=== PATIENT | female | born 1960 | race Caucasian/White ===

== ENCOUNTER 2020-12-15 06:43 | Outpatient (REF) | payer BC, SELFPAY ==
[2020-12-15 12:00] LABS: Hematocrit 44.1 % (37-47); Hemoglobin 14.2 g/dl (12.0-16.0); Mean Corpuscular HGB Conc 32.2 g/dl (31.0-35.0); Mean Corpuscular Hemoglobin 30.5 pg (27.0-33.0); Mean Corpuscular Volume 94.6 fL (80-98); Mean Platelet Volume 10.2 fL (9.4-12.3); Platelet Count 429 X10*3/uL (160-400); Red Blood Count 4.66 X10*6/uL (4.20-5.50); Red Cell Distribution Width 14.2 % (11.0-16.0); White Blood Count 8.2 X10*3/uL (4.8-10.8)
[2020-12-15 13:17] LABS: Alanine Aminotransferase 19 U/L (0-31); Albumin Level 4.1 g/dL (3.5-5.0); Alkaline Phosphatase 121 U/L (39-117); Anion Gap 11 (12-20); Aspartate Amino Transferase 18 U/L (5-31); Bilirubin Total 0.5 mg/dL (0.0-1.0); Blood Urea Nitrogen 16 mg/dL (9-16); Calcium 8.9 mg/dL (8.4-10.2); Carbon Dioxide 31 mmol/L (22-29); Chloride 103 mmol/L (96-108); Cholesterol 179 mg/dL; Estimated Glomerular Filt Rate > 60; Glucose Fasting 98 mg/dL (60-99); HDL Cholesterol 49 mg/dL; LDL Cholesterol Calculated 108 mg/dl; Potassium 4.2 mmol/L (3.3-5.1); Sodium 141 mmol/L (135-145); Total Protein 7.1 g/dL (6.5-8.0); Triglycerides 110 mg/dL; Vitamin D 25-OH Total 53.8 ng/mL (>30)
== END 2020-12-15 06:44 | disposition home or self-care (01) ==
LOC: HO.HMGCLDS 06:43
PROVIDERS: PCP Nurse Practitioner Family; Visit Provider Nurse Practitioner Family
DX: E78.2 Mixed hyperlipidemia (principal); M85.80 Other specified disorders of bone density and structure, unspecified site
CPT/HCPCS: 36415; 80053; 80061; 82306; 85027

== ENCOUNTER 2021-03-21 08:25 | Outpatient (REF) | payer BC, SELFPAY ==
[2021-03-23 20:22] LABS: HPV mRNA E6/E7 rflx Not Detected (Not Detected)
== END 2021-03-21 08:26 | disposition home or self-care (01) ==
LOC: HO.LAB 08:25
PROVIDERS: PCP Internal Medicine; Referring Provider Internal Medicine; Visit Provider Advanced Practice Midwife
DX: Z01.419 Encounter for gynecological examination (general) (routine) without abnormal findings (principal); Z12.31 Encounter for screening mammogram for malignant neoplasm of breast; Z80.3 Family history of malignant neoplasm of breast
CPT/HCPCS: 87624; 88142

== ENCOUNTER 2021-06-16 07:50 | Outpatient (REF) | payer BC, SELFPAY ==
--- NOTE | ~2021-06-16 | MM_ITS ---
EXAMINATION: MM SCREENING DIGITAL BREAST TOMOSYNTHESIS, BILATERAL CLINICAL INFORMATION: Screening. Asymptomatic. The lifetime risk of breast cancer based on the Tyrer-Cuzick Model is 16.2%. COMPARISON: Mammography: March 23, 2020 and studies dating back to November 20, 2013 TECHNIQUE: Digital breast tomosynthesis is performed in both the craniocaudal and mediolateral oblique views along with computer-aided detection (CAD). Synthesized 2D images are generated from the tomosynthesis. FINDINGS: There are scattered areas of fibroglandular density (ACR BI-RADS breast composition Category b). There is a stable parenchymal pattern within the right breast with no new abnormal dominant mass or suspicious grouping of microcalcifications. About the anterior inferior medial aspect of the left breast there is a circumscribed 5 mm density without calcification or spiculation. Ultrasound evaluation is recommended MM/MM tomosynthesis screening BI IMPRESSION: Left retroareolar density. Follow-up ultrasound evaluation. ASSESSMENT: BI-RADS 0: Incomplete - Need Additional Imaging Evaluation RECOMMENDATION: Left breast ultrasound This patient's information was entered into a reminder system with a target due date for their next mammogram.
== END 2021-06-16 07:51 | disposition home or self-care (01) ==
LOC: HO.MAMMO 07:50
PROVIDERS: PCP Nurse Practitioner Family; Visit Provider Advanced Practice Midwife
DX: Z12.31 Encounter for screening mammogram for malignant neoplasm of breast (principal)
CPT/HCPCS: 77063; 77067

== ENCOUNTER 2021-07-02 13:22 | Outpatient (REF) | payer BC, SELFPAY ==
--- NOTE | ~2021-07-02 | US_ITS ---
EXAMINATION: US DIAGNOSTIC ULTRASOUND BREAST, LEFT CLINICAL INFORMATION: Recall from screening for superficial circumscribed nodule inferior medial left breast near areolar margin, possibly increased in size. Family history breast cancer mother and sister. COMPARISON: Mammography 06/16/2021, 03/23/2020, 11/14/2018. TECHNIQUE: Ultrasound left breast is targeted to the lower inner anterior breast using grayscale imaging and color Doppler without and with harmonics. FINDINGS: The chronic nodule at the inferomedial areolar margin represents a hypoechoic nodule at the deep dermis measuring approximately 4 x 4 x 8 mm. The long axis is parallel with the skin. The interface with the deep dermis suggests subtle claw sign of a lesion of dermal origin. There is visible stalk seen extending towards the skin surface. No internal color flow. There is no posterior acoustic enhancement or posterior acoustic shadowing. No skin thickening or edema tracking in soft tissue planes. No focal duct ectasia. Results are discussed with the patient at time of visit. The circumscribed nodule has features possibly suggesting a lesion of dermal origin, such as sebaceous cyst or epidermal inclusion cyst. There is no internal color flow. Given the family history, follow-up ultrasound will be performed in 6 months to confirm stability. Patient is in agreement. US/US breast LT limited IMPRESSION: Circumscribed avascular nodule at the deep dermis possibly a sebaceous cyst. ASSESSMENT: BI-RADS 3: Probably Benign RECOMMENDATION: Targeted left breast ultrasound in 6 months. This patient's information was entered into a reminder system with a target due date for their next mammogram.
== END 2021-07-02 13:23 | disposition home or self-care (01) ==
LOC: HO.MAMMO 13:22
PROVIDERS: PCP Nurse Practitioner Family; Visit Provider Advanced Practice Midwife
DX: R92.2 Inconclusive mammogram (principal)
CPT/HCPCS: 76642

== ENCOUNTER 2021-10-16 10:25 | Outpatient (REF) | payer BC, SELFPAY ==
[2021-10-19 13:37] LABS: HPV mRNA E6/E7 rflx Not Detected (Not Detected)
== END 2021-10-16 10:26 | disposition home or self-care (01) ==
LOC: HO.LAB 10:25
PROVIDERS: PCP Nurse Practitioner Family; Visit Provider Advanced Practice Midwife
DX: Z12.4 Encounter for screening for malignant neoplasm of cervix (principal); Z11.51 Encounter for screening for human papillomavirus (HPV)
CPT/HCPCS: 87624; 88142

== ENCOUNTER 2022-02-19 14:23 | Outpatient (REF) | payer BC, SELFPAY ==
--- NOTE | ~2022-02-19 | US_ITS ---
EXAMINATION: US DIAGNOSTIC ULTRASOUND BREAST, LEFT CLINICAL INFORMATION: Circumscribed avascular nodule adjacent to the deep dermis periareolar 8:00 left breast for follow-up. Family history breast cancer mother and sister. COMPARISON: Ultrasound left breast 07/02/2021, mammography 06/16/2021, 03/23/2020. TECHNIQUE: Ultrasound of the left breast is targeted to the anterior lower inner quadrant using grayscale imaging and color Doppler without and with harmonics. FINDINGS: The nodule for follow-up 8:00 position 1 cm from nipple near areolar margin is stable. Lesion is circumscribed, residing adjacent to the deep dermis and without color flow. There is no visible stalk to the skin surface. No skin thickening. No edema tracking in soft tissue plane. Results are discussed with the patient at time of visit. Targeted left breast ultrasound will be performed again at time of annual bilateral mammography, due in approximately 6 months. US/US breast LT limited IMPRESSION: Stable avascular hypoechoic nodule 8:00 subareolar left breast. ASSESSMENT: BI-RADS 3: Probably Benign RECOMMENDATION: Targeted left breast ultrasound at time of annual bilateral mammography, due in 6 months. This patient's information was entered into a reminder system with a target due date for their next mammogram.
== END 2022-02-19 14:24 | disposition home or self-care (01) ==
LOC: HO.MAMMO 14:23
PROVIDERS: PCP Nurse Practitioner Family; Visit Provider Nurse Practitioner Family
DX: N63.24 Unspecified lump in the left breast, lower inner quadrant (principal)
CPT/HCPCS: 76642

== ENCOUNTER 2022-03-26 09:38 | Outpatient (REF) | payer BC, SELFPAY ==
[2022-03-29 19:06] LABS: HPV mRNA E6/E7 rflx Not Detected (Not Detected)
== END 2022-03-26 09:39 | disposition home or self-care (01) ==
LOC: HO.LAB 09:38
PROVIDERS: Visit Provider Advanced Practice Midwife
DX: Z12.4 Encounter for screening for malignant neoplasm of cervix (principal); Z11.51 Encounter for screening for human papillomavirus (HPV); Z87.42 Personal history of other diseases of the female genital tract
CPT/HCPCS: 87624; 88142

== ENCOUNTER → 2022-08-01 07:22 | Outpatient (REF) | payer BC, SELFPAY ==
--- NOTE | 2022-08-01 07:25 | CA_ITS ---
Transthoracic Echocardiogram Patient (Last, First, Middle): Tiffany Nelson J Gender: Female Date of : 1960 Age: 61 Procedure Date: 08/01/2022 Procedure Type: Transthoracic Echocardiogram Location: OP Height: 162.56 cm Weight: 67.13 kg BSA: 1.72 m2 Heart Rate: 73 bpm BP: 100 / 60 mmHg Progress Man: TO Referring MD: Renetta Olsen NP Symptoms: ABN EKG, RBBB, WOLF Study Quality: Technically Difficult/Contrast ECG Rhythm: Sinus Conclusions: - The left ventricular systolic function is normal. The calculated ejection fraction is 63% by biplane method. - There is mild calcification of the aortic valve. - No obvious valvular pathology seen on this study. Findings Procedure Information Contrast agent, definity, is being given per protocol without apparent complications. Left Ventricle Normal left ventricular cavity size. There is normal left ventricular wall thickness. The left ventricular systolic function is normal. The calculated ejection fraction is 63% by biplane method. There is no evidence of regional wall motion abnormalities. Diastolic function is normal for age. Right Ventricle Normal right ventricular cavity size and systolic function. Atria Both atria are normal in size. Aortic Valve There is a normal trileaflet aortic valve. There is mild calcification of the aortic valve. There is no aortic valve stenosis. There is no aortic valve regurgitation. Mitral Valve The mitral valve appears normal. There is no mitral valve regurgitation. There is no mitral valve stenosis. Pulmonic Valve The pulmonic valve is likely normal. Tricuspid Valve Normal tricuspid valve structure. There is trace tricuspid valve regurgitation. There is no evidence of pulmonary hypertension. Great Vessels The asc aorta is normal in size. Venous The inferior vena cava is normal in size and collapses greater than 50% with inspiration. Pericardium/Pleural Widened pericardial space, unable to distinguish between adipose tissue and effusion. Prior Study Comparison No prior study available for comparison. Recommendations, Care & Conclusions No obvious valvular pathology seen on this study. Measurements 2D Linear Measurements IVSd: 0.72 0.6-0.9/0.6-1.0 cm LVIDd: 3.83 3.9-5.3/4.2-5.9 cm LVIDd Index: 2.23 2.4-3.2/2.2-3.1 cm/m2 LVIDs: 2.85 2.0-3.6 cm LVPWd: 0.86 0.7-1.1 cm LA Diam: 2.50 2.7-3.8/3.0-4.0 cm LAIDs Index: 1.45 1.5-2.3 cm/m2 LV Mass: 106.24 67-162/88-224 g LV Mass Index: 61.77 43-95/49-115 g/m2 LVOT Diam: 2.00 3.0+(-)1.3 cm 2D Systolic Function EF 4C: 56.00 >55% EF 2C: 69.10 >55% EF BiP: 63.20 >55% Mitral Valve MV Pk E: 0.73 MV PK A: 0.52 MV Decel Time: 205.00 E/A: 1.40 E'Lateral: 11.90 E'Medial: 7.94 E/E' Med: 9.20 E/E' Lat: 6.10 PHT: 60.00 MVA PHT: 3.67 Decel [place]: 3.55 Aortic Valve AoV Pk [place]: 1.18 AoV Mn [place]: 0.92 AoV VTI: 0.27 AoV Pk Grad: 6.00 Aov Mn Grad: 4.00 TAMIKA Cont.VTI: 2.40 LVOT LVOT Pk [place]: 1.05 LVOT Mn [place]: 0.62 LVOT VTI: 0.21 LVOT Pk Grad: 4.00 LVOT Mn Grad: 2.00 LVOT Diam: 2.00 LVOT Area: 3.14 Diastolic Function MV Pk E: 0.73 MV Pk A: 0.52 E/A: 1.40 E'Medial: 7.94 E/E' Med: 9.20 E' Laterial: 11.90 E/E' Lat: 6.10 Right Ventricle TAPSE (mm): 17.50 TVS' [place]: 10.40 Tricuspid Valve TR Pk [place]: 2.47 TR Pk Grad: 24.00 RA Press: 3.00 RVSP: 27.00 Great Vessels Aorta Sinus of Valsalva: 2.73 2.0-3.5 cm Ao Asc: 3.00 2.1-3.4 cm Updated in Other Vendor System with Status of Final Gm Smith MD electronically signed on 08/02/2022 2:28:45 PM with status of Final
== END ==
LOC: HO.CARD 07:22
PROVIDERS: Visit Provider Nurse Practitioner Family
DX: R94.31 Abnormal electrocardiogram [ECG] [EKG] (principal)
CPT/HCPCS: 93306; Q9957

== ENCOUNTER 2022-08-09 07:09 | Outpatient (REF) | payer BC, SELFPAY ==
[2022-08-09 11:28] LABS: MANUAL DIFF FLAG NO
[2022-08-09 11:48] LABS: Basophils Absolute Auto 0.1 X10*3/uL (0.0-0.2); Basophils Percent Auto 1.3 % (0-2); Eosinophils Absolute Auto 0.3 X10*3/uL (0.0-0.4); Eosinophils Percent Auto 3.8 % (0-4); Hematocrit 40.8 % (37.0-47.0); Hemoglobin 13.7 g/dl (12.0-16.0); Imm Gran Abs Auto 0.02 X10*3/uL (0.00-0.03); Imm Gran Pct Auto 0.2 % (0.0-0.4); Lymphocytes Absolute Auto 3.2 X10*3/uL (1.2-4.9); Lymphocytes Percent Auto 37.4 % (20-40); Mean Corpuscular HGB Conc 33.6 g/dl (31.0-35.0); Mean Corpuscular Hemoglobin 30.9 pg (27.0-33.0); Mean Corpuscular Volume 92.1 fL (80.0-98.0); Monocytes Absolute Auto 0.8 X10*3/uL (0.1-1.2); Neutrophils Absolute Auto 4.1 x10*3/uL (2.0-8.3); Neutrophils Percent Auto 48.3 % (45-73); Platelet Count 481 X10*3/uL (160-400); Red Blood Count 4.43 X10*6/uL (4.20-5.50); White Blood Count 8.5 X10*3/uL (4.8-10.8)
[2022-08-09 11:59] LABS: Alanine Aminotransferase 18 U/L (0-31); Alkaline Phosphatase 132 U/L (39-117); Anion Gap 15 (12-20); Aspartate Amino Transferase 16 U/L (5-31); Bilirubin Total 0.5 mg/dL (0.0-1.0); Blood Urea Nitrogen 10 mg/dL (9-16); Carbon Dioxide 24 mmol/L (22-29); Chloride 106 mmol/L (96-108); Cholesterol 153 mg/dL; Estimated Glomerular Filt Rate > 60; Glucose Random 101 mg/dL (60-115); HDL Cholesterol 46 mg/dL; LDL Cholesterol Calculated 88 mg/dl; Potassium 4.3 mmol/L (3.3-5.1); Sodium 141 mmol/L (135-145); Total Protein 7.1 g/dL (6.5-8.0); Triglycerides 98 mg/dL
== END 2022-08-09 07:10 | disposition home or self-care (01) ==
LOC: HO.HMGCLDS 07:09
PROVIDERS: PCP Nurse Practitioner Family; Visit Provider Nurse Practitioner Family
DX: Z00.00 Encounter for general adult medical examination without abnormal findings (principal); R06.00 Dyspnea, unspecified; J44.9 Chronic obstructive pulmonary disease, unspecified; E78.2 Mixed hyperlipidemia; F17.200 Nicotine dependence, unspecified, uncomplicated
CPT/HCPCS: 36415; 80053; 80061; 85025; 94618

== ENCOUNTER 2022-08-29 14:52 | Outpatient (REF) | payer BC, SELFPAY ==
--- NOTE | ~2022-08-29 | MM_ITS ---
EXAMINATION: MM DIAGNOSTIC DIGITAL BREAST TOMOSYNTHESIS, BILATERAL US DIAGNOSTIC ULTRASOUND BREAST, LEFT CLINICAL INFORMATION: Due for yearly. Also follow-up probable benign hypoechoic nodules subareolar left breast possibly sebaceous cyst. Family history breast cancer mother and sister. TC score 14%. COMPARISON: Mammography: 06/16/2021, 03/23/2020, 11/14/2018; ultrasound left breast 02/19/2022, 07/02/2021. TECHNIQUE: Digital breast tomosynthesis is performed in both the craniocaudal and mediolateral oblique views along with computer-aided detection (CAD). Synthesized 2D images are generated from the tomosynthesis. Ultrasound left breast is targeted to the medial periareolar breast using grayscale imaging and color Doppler without and with harmonics. FINDINGS: There are scattered areas of fibroglandular density (ACR BI-RADS breast composition Category b). Parenchymal pattern is similar to prior exams. There is no developing density or significant mass or architectural abnormality. No abnormal calcifications. The axilla and skin contours are unremarkable. Circumscribed nodule 8:00 areolar margin left breast is stable from multiple prior studies. No significant change in size or margins. Ultrasound demonstrates no significant changes. Again, there is nearly anechoic nodule without associated color flow and measuring approximately 4 x 6 mm. The interface with the deep dermis suggests benign claw sign of a lesion of dermal origin as noted previously. Results are discussed with the patient at time of visit. The nodule left breast is chronic and likely sebaceous cyst. MM/MM tomosynthesis diagnostic BI IMPRESSION: -No mammographic evidence of malignancy. No significant changes from prior exams. -Probable intradermal merging with the dermis on targeted left breast ultrasound, under 1 cm. ASSESSMENT: BI-RADS 2: Benign RECOMMENDATION: Routine annual mammography screening. This patient's information was entered into a reminder system with a target due date for their next mammogram.
== END 2022-08-29 14:53 | disposition home or self-care (01) ==
LOC: HO.MAMMO 14:52
PROVIDERS: PCP Nurse Practitioner Family; Visit Provider Nurse Practitioner Family
DX: N63.22 Unspecified lump in the left breast, upper inner quadrant (principal)
CPT/HCPCS: 76642; 77062; 77066

== ENCOUNTER 2022-09-25 08:01 | Outpatient (REF) | payer BC, SELFPAY ==
[2022-09-26 09:28] LABS: HPV mRNA E6/E7 rflx Not Detected (Not Detected)
== END 2022-09-25 08:02 | disposition home or self-care (01) ==
LOC: HO.LNP 08:01
PROVIDERS: PCP Nurse Practitioner Family; Visit Provider Advanced Practice Midwife
DX: Z12.4 Encounter for screening for malignant neoplasm of cervix (principal); Z11.51 Encounter for screening for human papillomavirus (HPV); Z87.42 Personal history of other diseases of the female genital tract
CPT/HCPCS: 87624; 88142

== ENCOUNTER 2022-10-03 15:35 | Outpatient (REF) | payer BC, SELFPAY ==
--- NOTE | 2022-10-03 17:42 | PFT_ITS ---
INDICATIONS: Dyspnea. SPIROMETRY: FEV1 to FVC 66% with an FEV1 of 1.44 L, which is 57% predicted, an FVC of 2.19 L, which is 67% predicted. Post bronchodilators, there was a significant improvement of both the FVC and the FEV1. Of note, the patient also has significant small airway disease. The maximum voluntary ventilation is 62% predicted. LUNG VOLUMES: Total lung capacity 101% predicted with residual volume 161% predicted. DIFFUSION CAPACITY: DLCO 46% predicted. COMPARISONS: None. INTERPRETATION: There is an obstructive ventilatory defect consistent with moderate COPD. The patient does have a significant response to bronchodilators noted and significant small airway disease. There is a moderate decrease in maximum voluntary ventilation secondary to likely deconditioning and also worsening dynamic inspiratory capacity. Lung volumes with significant air trapping due to the COPD and there is also moderate to severe diffusion impairment secondary to likely emphysema and/or the parenchymal lung conditions that should be considered. Clinical correlation warranted. MD JAMAL Domingo/MERVIN / [id number]
== END 2022-10-03 15:36 | disposition home or self-care (01) ==
LOC: HO.RESP 15:35
PROVIDERS: PCP Nurse Practitioner Family; Visit Provider Hospitalist
DX: R06.00 Dyspnea, unspecified (principal)
CPT/HCPCS: 94060; 94727; 94729

== ENCOUNTER → 2022-10-09 11:21 | Outpatient (BNVA) | payer BC, SELFPAY | PROVIDERS: PCP Nurse Practitioner Family; Visit Provider Hospitalist | DX: J44.9 Chronic obstructive pulmonary disease, unspecified (principal); F17.200 Nicotine dependence, unspecified, uncomplicated ==

== ENCOUNTER 2023-04-28 09:22 | Outpatient (AMB) | payer BC, SELFPAY ==
--- NOTE | 2023-04-28 09:39 | MHC.OFFVIS ---
Intake Vital Signs 04/28/23 09:44 Height 5 ft 4 in Weight 139 lb BMI 23.9 BP 119/59 L Blood Pressure Location Lt brachial Position Sitting Pulse 78 Intake Visit Reasons: Colonoscopy screening Intake Note: Patient new consult for 3rd pre Colonoscopy screening. Patient denies any GI issues. Residential Sales Representative Required: No Accompanied by: Self / Same As Patient Allergies acetaminophen [From TYLENOL-CODEINE #3] Allergy (Unknown, Verified 10/09/22 11:31) RASH codeine [From TYLENOL-CODEINE #3] Allergy (Unknown, Verified 10/09/22 11:31) RASH Medication List - Last Reconciled 04/28/23 by Shruthi White PA-C albuterol sulfate 90 mcg/actuation 2 inhalations inhalation Q6H PRN 30 days atorvastatin 40 mg PO DAILY bupropion HCl 150 mg PO QAM calcium carbonate (Calcium 500) 500 mg PO DAILY cholecalciferol (vitamin D3) 50 mcg PO DAILY clindamycin phosphate 1% topical fluocinonide 0.05% 1 appl topical DAILY PRN HPI HPI Comments History of Present Illness Details A 62 y/o female - hx adenoma-she had polyps @ age 50 Bowels are normal- appetite is good- No known family history colon cancer No cardiac issues, COPD follows with pulmonary-she is a smoker pack a day No N/V/ D- abdominal pain, fever or chills- PFSH Medical History (Updated 04/28/23 @ 10:10 by Shruthi White PA-C) COPD (chronic obstructive pulmonary disease) Dermatitis Dyspnea History of abnormal cervical Pap smear History of depression Hyperlipidemia Smoker Vitamin D deficiency Surgical History History of loop electrical excision procedure (LEEP) Family History Daughter Head and neck cancer Mother History of breast cancer Sister History of breast cancer Social History Alcohol intake: never Patient Tobacco Use Status: Current everyday Tobacco user Cigarette Packs Per Day: 1 Use of substances other than those prescribed or required for medical reasons: No Review of Systems Const All systems reviewed & are unremarkable except as noted in HPI and below Card Denies chest pain and Reports dyspnea on exertion Resp Reports dyspnea on exertion GI Reports as per HPI, Denies abdominal pain, Denies change in bowel habits, Denies heartburn, Denies diarrhea, Denies nausea and Denies vomiting Physical Exam Vital Signs: Last Vital Signs Pulse 78 04/28/23 09:44 BP 119/59 L 04/28/23 09:44 BMI result Body Mass Index 23.9 Const General: cooperative, healthy appearing and comfortable Orientation/consciousness: patient oriented x3 Limitations: no limitations Resp Effort & Inspection: normal respiratory effort and able to speak in complete sentences Auscultation: no wheezes and diminished lung sounds Cardio Rate: regular rate Rhythm: regular rhythm Heart sounds: S1 normal heart sound present and S2 normal heart sound present GI Palpation (GI): Soft to palpation and nontender Auscultation: normal bowel sounds Skin General skin exam: no rashes or lesions noted Neuro General: patient oriented x3 Extrem General: Yes full ROM Psych Appearance: grossly normal and well kempt Mental Status: mental status grossly normal Speech and movement: Normal speech and movement present Affect: normal affect Attitude: cooperative Thought process: Normal thought process present Thought content: Normal thought content present Insight: Good insight present (Psych) Judgement: Good judgement present (Psych) Results Reviewed Results Reviewed: Colonoscopy-tubular adenoma at age 50-last colonoscopy 2015-no polyps Assessment & Plan Assessment & Plan (1) History of adenomatous polyp of colon: Comment: Overdue polyp surveillance Code(s): Z86.010 - Personal history of colonic polyps Plan: Polyp surveillance colonoscopy MiraLax Gatorade prep Anesthesia consult sees pulmonary COPD Plan Colonoscopy- MG prep- anesthesia consult- COPD Orders: Orders Colonoscopy - GI Use Only Today Z86.010 - Personal history of colonic polyps Medications: New bisacodyl (Dulcolax (bisacodyl)) Take 4 tablets by mouth at 12:00pm the day before your procedure. 20 mg (4 x 5 mg) PO ONCE 1 day 4 tabs 0RF colonoscopy prep Z12.11 - Encounter for screening for malignant neoplasm of colon polyethylene glycol 3350 (Miralax) Take as directed by mouth the day before your procedure. 238 grams PO ONCE 1 day PRN 238 grams 0RF laxative effect Patient Instructions: Very pleasant 62-year-old female COPD, smoker due for polyp surveillance colonoscopy. Reviewed prep instructions, literature given Encouraged to call questions or concerns Appreciate the opportunity assist in the care the patient Coding Level of Care Code New Pt Level 3 (43512) Diagnoses History of adenomatous polyp of colon Z86.010 Time Spent (min) 30
[2023-04-28 09:44] VITALS: BP 119/59; PULSE 78; BMI 23.9
== END 2023-04-28 10:22 | disposition home or self-care (01) ==
PROVIDERS: PCP Nurse Practitioner Family; Visit Provider Physician Assistant
DX: Z01.818 Encounter for other preprocedural examination (principal); Z12.11 Encounter for screening for malignant neoplasm of colon; Z86.010 Personal history of colon polyps
CPT/HCPCS: S0285

== ENCOUNTER → 2023-04-28 09:22 | Outpatient (BNVA) | payer BC, SELFPAY | PROVIDERS: PCP Nurse Practitioner Family; Visit Provider Physician Assistant ==

== ENCOUNTER 2023-05-09 08:54 | Outpatient (AMB) | payer BC, SELFPAY ==
--- NOTE | 2023-05-09 09:00 | MHC.OFFVIS ---
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 Scribed for JOSE Man by Mary Anderson medical technologist microbiology, on 05/09/2023 at 9:28 am EST. Test Desk Trouble Locator Required: No Information Interpreted: non-clinical & clinical Heat Treater Head: Heat Treater Head Present (Mariah Erwin SHER) Accompanied by: Self / Same As Patient Allergies acetaminophen [From TYLENOL-CODEINE #3] Allergy (Unknown, Verified 05/09/23 09:04) RASH codeine [From TYLENOL-CODEINE #3] Allergy (Unknown, Verified 05/09/23 09:04) RASH Post menopausal: Yes HPI HPI Comments History of Present Illness Details She is a postmenopausal woman presenting for annual exam. Patient admits she tries to eat a healthy diet including Calcium and Vitamin D. She stays active with exercise. Currently not sexually active. Denies vaginal itching and irritation. Denies family hx of colon and ovarian cancer. Last pap smear 09/25/22. Hx. of LEEP x 3, pt. declined colposcopy/biopsy evaluation and prefers to have a pap yeasrly. She was previously informed and aware that this is not the recommended screening or follow up if a biopsy was needed, she opted to screen per choice at this time with yearly a pap smear. Last mammogram 08/29/22. Colonoscopy scheduled. Admits to smoking. [facility] Medical History COPD (chronic obstructive pulmonary disease) Dermatitis Dyspnea History of abnormal cervical Pap smear History of depression Hyperlipidemia Smoker Vitamin D deficiency Surgical History History of loop electrical excision procedure (LEEP) Family History Daughter Head and neck cancer Mother History of breast cancer Sister History of breast cancer Social History Household Members: Spouse Housing: House Alcohol intake: never Patient Tobacco Use Status: Current everyday Tobacco user Cigarette Packs Per Day: 1 Cigarettes Per Day: 20 Years Smoked: 40 Current occupational status: employed Current occupation: [employer] Sexual orientation: Straight/Heterosexual Gender identity: Female Female Reproductive History Menstrual Menopause type: natural Total pregnancies: 2 Full term: 2 Number of Living Children: 2 Date of last pap smear: 09/25/22 History of abnormal pap smear: Yes (Ascus) Date of Mammogram: 08/29/22 Physical Exam Vital Signs: Last Vital Signs BP 96/60 05/09/23 09:03 BMI result Body Mass Index 23.9 Const General: cooperative, healthy appearing, no acute distress, well developed and alert Orientation/consciousness: patient oriented x3 HEENT Head: Yes normal to inspection Eyes General: appearance normal, both eyes and all related structures Neck Neck: Yes normal visual inspection Thyroid: Thyroid normal Chest Chest palpation & inspection: normal inspection of the chest Breast/axilla inspection: normal inspection of the breasts (no puckering, dimpling, peau de orange, retraction, discharge, masses) Breast/axilla palpation: normal palpation of the breasts Resp Effort & Inspection: normal respiratory effort GI Inspection: Yes normal to inspection Palpation (GI): Soft to palpation (to palpation) Rectal Exam - Female: deferred Other: post LEEP appearance General: Yes bladder normal to inspection External Female Exam: normal external appearance and normal appearance of the urethra Speculum Exam - Vagina: normal appearance of the vagina, normal palpation and vagina atrophic Speculum Exam - Cervix: normal appearance of the cervix, normal palpation and Other cervical findings present (bled slightly with pap) Bimanual exam- vagina & uterus: normal palpation and normal palpation Bimanual Exam- Adnexa, other: normal adnexae and no masses Skin General skin exam: no rashes or lesions noted Neuro General: patient oriented x3 Cognition (Neuro): normal cognition Extrem General: Yes normal to inspection Psych Attitude: cooperative Thought process: Normal thought process present Assessment & Plan Assessment & Plan (1) Encounter for annual routine gynecological examination: Code(s): Z01.419 - Encounter for gynecological examination (general) (routine) without abnormal findings Plan: Discussed: Current recommendations for pap smears per ASCCP guidelines. Breast awareness and periodic self breast exams. Encouraged yearly mammograms. Maintaining a healthy lifestyle including a well balanced diet including Calcium and Vitamin D and routine exercise. Contact office with any PMB. All of her questions and concerns were addressed to the best of my ability RTO in 1 year for AG. Orders: Orders Pap Smear Today Z01.419 - Encounter for gynecological examination (general) (routine) without abnormal findings, Z87.42 - Personal history of other diseases of the female genital tract Coding Level of Care Code Est Pt Prev Care 40-64y(14524) Diagnoses Encounter for annual routine gynecological examination Z01.419
[2023-05-09 09:03] VITALS: BP 96/60; BMI 23.9
== END 2023-05-09 09:35 | disposition home or self-care (01) ==
LOC: HO.HWS 08:54
PROVIDERS: PCP Nurse Practitioner Family; Visit Provider Advanced Practice Midwife
DX: Z01.419 Encounter for gynecological examination (general) (routine) without abnormal findings (principal)
CPT/HCPCS: 99396

== ENCOUNTER 2023-05-09 08:54 | Outpatient (REF) | payer BC, SELFPAY ==
[2023-05-15 04:13] LABS: HPV mRNA E6/E7 rflx Not Detected (Not Detected)
== END 2023-05-09 08:55 | disposition home or self-care (01) ==
LOC: HO.LNP 08:54
PROVIDERS: PCP Nurse Practitioner Family; Visit Provider Advanced Practice Midwife
DX: Z01.419 Encounter for gynecological examination (general) (routine) without abnormal findings (principal); Z11.51 Encounter for screening for human papillomavirus (HPV); Z87.42 Personal history of other diseases of the female genital tract
CPT/HCPCS: 87624; 88142

== ENCOUNTER 2023-11-14 11:25 | Day surgery (SDC) | payer BC, SELFPAY ==
[2023-11-12 11:23] VITALS: BMI 23.9
--- NOTE | 2023-11-13 09:05 | P.CONAN_ITS ---
Documented by User: Alexus Huff NP 11/13/23 09:06 HPI - Anesthesia Eval Consult details Narrative: 63yo F for Colonoscopy PMFSH Active Problems Active Problems: All Active Problems (Updated 04/28/23 @ 10:10 by Shruthi White PA-C) History of adenomatous polyp of colon (Acute) COPD (chronic obstructive pulmonary disease) (Acute) History of abnormal cervical Pap smear (Acute) Dyspnea (Acute) Smoker (Acute) Encounter for annual routine gynecological examination (Acute) Encounter for repeat Papanicolaou smear of cervix (Acute) Past Medical History Medical History COPD (chronic obstructive pulmonary disease) Dermatitis Dyspnea History of abnormal cervical Pap smear History of depression Hyperlipidemia Smoker Vitamin D deficiency Family History Family History Daughter Head and neck cancer Mother History of breast cancer Sister History of breast cancer Surgical History Surgical History History of loop electrical excision procedure (LEEP) Social History Social History Household Members: Spouse Housing: House Alcohol intake: never Patient Tobacco Use Status: Current everyday Tobacco user Tobacco use type: Cigarette Cigarette Packs Per Day: 1 Cigarettes Per Day: 8 Years Smoked: 50 Current occupational status: employed 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 Sexual orientation: Straight/Heterosexual Gender identity: Female Meds Allergies Allergy/AdvReac Type Severity Reaction Status Date / Time codeine Allergy Intermediate RASH Verified 11/14/23 12:18 [From TYLENOL-CODEINE #3] Home Medications Medication Instructions Recorded Confirmed Last Taken Type atorvastatin 40 mg tablet 40 mg PO DAILY 03/21/21 11/14/23 Unknown History bupropion HCl 150 mg 24 hr tablet, 150 mg PO QAM 03/21/21 11/14/23 Unknown History extended release calcium carbonate 500 mg calcium 500 mg PO DAILY 03/21/21 11/14/23 Unknown History (1,250 mg) chewable tablet (Calcium 500) cholecalciferol (vitamin D3) 50 50 mcg PO DAILY 03/21/21 11/14/23 Unknown History mcg (2,000 unit) capsule fluocinonide 0.05 % topical 1 appl topical DAILY PRN Rash 03/21/21 11/14/23 Unknown History ointment sertraline 50 mg tablet 75 mg PO DAILY 11/14/23 11/14/23 Unknown History Exam Height,Weight and Vital Signs: Height 5 ft 4 in Weight 63.049 kg Assessment and Plan Assessment Anesthesia Assessment: Chart Reviewed Documented by User: Mable Randall MD 11/14/23 14:54 PMFSH Active Problems Active Problems: All Active Problems (Updated 11/14/23 @ 13:30 by Mable Randall MD) History of adenomatous polyp of colon (Acute) COPD (chronic obstructive pulmonary disease) (Acute) History of abnormal cervical Pap smear (Acute) Dyspnea (Acute) Smoker (Acute) Encounter for annual routine gynecological examination (Acute) Encounter for repeat Papanicolaou smear of cervix (Acute) Past Medical History Medical History COPD (chronic obstructive pulmonary disease) Dermatitis Dyspnea History of abnormal cervical Pap smear History of depression Hyperlipidemia Smoker Vitamin D deficiency Family History Family History Daughter Head and neck cancer Mother History of breast cancer Sister History of breast cancer Family history of problems with anesthesia: No Surgical History Surgical History History of loop electrical excision procedure (LEEP) History of Problems with Anesthesia: No Social History Social History Household Members: Spouse Housing: House Alcohol intake: never Patient Tobacco Use Status: Current everyday Tobacco user Tobacco use type: Cigarette Cigarette Packs Per Day: 1 Cigarettes Per Day: 8 Years Smoked: 50 Current occupational status: employed 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 Sexual orientation: Straight/Heterosexual Gender identity: Female Meds Allergies Allergy/AdvReac Type Severity Reaction Status Date / Time codeine Allergy Intermediate RASH Verified 11/14/23 12:18 [From TYLENOL-CODEINE #3] Home Medications Medication Instructions Recorded Confirmed Last Taken Type atorvastatin 40 mg tablet 40 mg PO DAILY 03/21/21 11/14/23 Unknown History bupropion HCl 150 mg 24 hr tablet, 150 mg PO QAM 03/21/21 11/14/23 Unknown History extended release calcium carbonate 500 mg calcium 500 mg PO DAILY 03/21/21 11/14/23 Unknown History (1,250 mg) chewable tablet (Calcium 500) cholecalciferol (vitamin D3) 50 50 mcg PO DAILY 03/21/21 11/14/23 Unknown History mcg (2,000 unit) capsule fluocinonide 0.05 % topical 1 appl topical DAILY PRN Rash 03/21/21 11/14/23 Unknown History ointment sertraline 50 mg tablet 75 mg PO DAILY 11/14/23 11/14/23 Unknown History Exam Height,Weight and Vital Signs: Height 5 ft 4 in Weight 63.049 kg Vital Signs Temp Pulse Resp BP Pulse Ox O2 Del Method 97.4 F 84 16 141/75 H 98 Room Air 11/14/23 12:14 11/14/23 12:14 11/14/23 12:14 11/14/23 12:14 11/14/23 12:14 11/14/23 12:14 Airway Mallampati Class: II TM Dist: >3cm Neck ROM: Full Partial: Upper Loose/Missing/Broken Teeth: Yes (Some missing bottom, partial top. Denies broken or loose teeth) Heart: RRR Lungs: CTAB Assessment and Plan Assessment Anesthesia Assessment: Anesthesia Plan Discussed and Chart Reviewed Final Anesthetic Review Family History of Problems with Anesthesia: No History of Problems with Anesthesia: No NPO: Yes ASA Class: II Final Preanesthetic Review: No Changes in Pt Med Stat, Meds/Allgs Chart Reviewed, Consent Obtained/Reviewed and Anes Risks/Benef Reviewed Patient Risk: Low Procedure Risk: Low Assessment/Block/Sedation in SS: Assess/Block/Sedation-SS Anesthetic Plan Anesthetic Plan: TIVA Disposition: Standard PACU
[2023-11-14 12:14] VITALS: BP 141/75; PULSE 84; RESP 16; TEMP 36.3; O2SAT 98; BMI 22.8
--- NOTE | 2023-11-14 13:08 | MHC.SHP ---
Pre-Procedural Eval Section A - 24 Hr Update-Section A only Date of Service: 11/14/23 The patient is an INPATIENT: No The patient has been examined within 24 hours of the surgical procedure. The History & Physical has been completed within 30 days and I have reviewed it.: No Section B - Complete if H&P > 30 days Chief Complaint: Surveillance for colon polyps Relevant Family History (Specify if Yes): No Relevant Social History: Tobacco Use Present Medications: see Short Stay Collaborative assessment Medical History: Significant History (COPD (chronic obstructive pulmonary disease) Dermatitis Dyspnea History of abnormal cervical Pap smear History of depression Hyperlipidemia Smoker Vitamin D deficiency) History of Previous Operations: Relevant previous surgery/procedure and date(s) (Hx of LEEP procedure) Allergies: Allergies Allergy/AdvReac Type Severity Reaction Status Date / Time codeine Allergy Intermediate RASH Verified 11/14/23 12:18 [From TYLENOL-CODEINE #3] Review of Systems Sugical H&P ROS: Negative: Constitution, Cardiovascular, Respiratory and Gastrointestinal Exam Surgical H&P Exam: Normal: Heart, Normal: Lungs, Normal: Extremities and Normal: Abdomen Plan Diagnosis/Plan: Unchanged I have reviewed the history and physical and performed a pertinent physical examination on my patient. No changes have occurred unless specified. Time Spent With Patient Time: Total time managing care of this patient today ____ minutes.
[2023-11-14] MEDS: Lactated Ringers 1,000 ML 100 ML IVCONT (13:26)
--- NOTE | 2023-11-14 14:55 | W.PM.OPN ---
Operative Note Operative Note Date of Service: 11/14/23 Narrative: COLONOSCOPY TILL CECUM WITH BIOPSIES AND SNARE POLYPECTOMY Pre-op diagnosis: Surveillance for colon polyps Post-op diagnosis:? Colon polyps, diverticulosis, hemorrhoids Endoscopist:? Regan Ring MD Anesthesia:?MAC Consent: Indications for the procedure and potential complications of bleeding, perforation, reaction to medications and missed diagnosis were discussed with the patient and informed consent was obtained. Instrument: Olympus PCF H 190 L variable stiffness pediatric colonoscope Monitoring: Vital signs and clinical assessment, intermittent blood pressure monitoring, continuous EKG monitoring, Pulse oximetry and Carbon Dioxide monitoring were done throughout the procedure. Please see anesthesia flowsheet. Colon withdrawl time was 21 minutes. Procedure: The patient was placed in the left lateral decubitis position and pre-procedure medications were administered. After a digital rectal examination of the ano-rectum, the video colonoscope was inserted into the rectum and advanced through the colon to the cecum. The colonoscope was slowly withdrawn in a retrograde panoramic fashion and the colon mucosa was carefully examined including a retroflexed view of the rectum. Findings and interventions are described below. Procedure Difficulty: Colon was long and tortuous and there was some loop formation. LLQ pressure was applied to intubate the cecum Findings: Terminal Ileum: Not evaluated Cecum: A 5-6 mm diminutive appearing polyp - removed with a cold biopsy. Ascending Colon: Normal Transverse Colon: Two 7-8 mm sessile polyps - removed with a cold snare. A 2-3 mm sessile polyp - removed with a cold biopsy Descending Colon: Moderate diverticulosis Sigmoid Colon: Moderate diverticulosis Rectum: Normal Ano-rectum: Moderate internal hemorrhoids Colon preparation: Excellent after some irrigation [place] Bowel Preparation Scale Right colon; 3 Transverse colon: 3 Left colon; 3 (0 = Unprepared colon segment with mucosa not seen due to solid stool that cannot be cleared. 1 = Portion of mucosa of the colon segment seen, but other areas of the colon segment not well seen due to staining, residual stool and/or opaque liquid. 2 = Minor amount of residual staining, small fragments of stool and/or opaque liquid, but mucosa of colon segment seen well. 3 = Entire mucosa of colon segment seen well with no residual staining, small fragments of stool or opaque liquid) Impression and Post Procedure Diagnosis: Colonoscopy Findings: Four small polyps removed Moderate diverticulosis seen in the left colon Moderate hemorrhoids on retroflexed exam. Plan: Await pathology results Patient has an appointment on 11/27/23 in the GI Clinic with QIAN Dorantes. Repeat Colonoscopy interval based on path results - in 3-5 years if polyps are adenomatous and due to a hx of adenomatous colon polyps. Above findings were reviewed with the patient and colon polyps and diverticulosis handouts were given in the discharge area
[2023-11-14 15:00] VITALS: BP 101/59; PULSE 88; RESP 18; TEMP 36.3; O2SAT 96
[2023-11-14 15:15] VITALS: BP 92/62; PULSE 83; RESP 18; O2SAT 97
[2023-11-14 15:25] VITALS: BP 108/62; PULSE 78; RESP 20; TEMP 36.1; O2SAT 97
== END 2023-11-14 15:57 | disposition home or self-care (01) ==
PROVIDERS: PCP Nurse Practitioner Family; Visit Provider Internal Medicine Gastroenterology
PROC: 0DJD8ZZ Inspection of Lower Intestinal Tract, Via Natural or Artificial Opening Endoscopic (ICD-10-PCS; CPT 45378; principal; 2023-11-14 14:00)
DX: Z12.11 Encounter for screening for malignant neoplasm of colon (principal); D12.3 Benign neoplasm of transverse colon; K56.2 Volvulus; K57.30 Diverticulosis of large intestine without perforation or abscess without bleeding; K64.8 Other hemorrhoids; Z86.010 Personal history of colon polyps; E78.5 Hyperlipidemia, unspecified; J44.9 Chronic obstructive pulmonary disease, unspecified; F17.210 Nicotine dependence, cigarettes, uncomplicated; Z79.899 Other long term (current) drug therapy; Z79.02 Long term (current) use of antithrombotics/antiplatelets
CPT/HCPCS: 45385; 45380; 88305; J2704

== ENCOUNTER → 2023-11-14 11:25 | Outpatient (BNV) | payer BC, SELFPAY | PROVIDERS: PCP Nurse Practitioner Family; Visit Provider Internal Medicine Gastroenterology | DX: Z12.11 Encounter for screening for malignant neoplasm of colon (principal); D12.0 Benign neoplasm of cecum; D12.3 Benign neoplasm of transverse colon; K57.30 Diverticulosis of large intestine without perforation or abscess without bleeding; K64.8 Other hemorrhoids | CPT/HCPCS: 45380; 45385 ==

== ENCOUNTER 2023-11-27 07:19 | Outpatient (AMB) | payer BC, SELFPAY ==
--- NOTE | 2023-11-27 07:36 | A.OFFVIS_ITS ---
Intake Vital Signs 11/27/23 07:38 Height 5 ft 4 in Weight 133 lb BMI 22.8 BP 114/56 L Blood Pressure Location Lt brachial Position Sitting Pulse 69 Intake Visit Reasons: s/P [place];; Dr. Ring Intake Note: Tiffany presents in the office as a follow up colonoscopy. CC: She states that she is not having any concerns. Allergies codeine [From TYLENOL-CODEINE #3] Allergy (Intermediate, Verified 11/14/23 12:18) RASH Medication List - Last Reconciled 11/27/23 by Shruthi White PA-C albuterol sulfate 90 mcg/actuation 2 puffs inhalation Q6H PRN atorvastatin 40 mg PO DAILY betamethasone dipropionate 0.05% 1 appl topical BID bupropion HCl 150 mg PO QAM calcium carbonate (Calcium 500) 500 mg PO DAILY cholecalciferol (vitamin D3) 50 mcg PO DAILY fluocinonide 0.05% 1 appl topical DAILY PRN sertraline 75 mg PO DAILY HPI HPI Comments History of Present Illness0 Details A 63-year-old female personal history colon polyps follows up after recent polyp surveillance colonoscopy with polypectomy She tolerated procedure well She has no GI complaints Reviewed procedure report, pathology recommendation Discussed adenomatous polyps, plan of care, as well importance for family history Discussed diverticulosis/diverticulitis ER protocol Maintaining high-fiber diet No nausea, vomiting, hematemesis hematochezia fever chills PFSH Medical History (Updated 11/27/23 @ 08:42 by Shruthi White PA-C) COPD (chronic obstructive pulmonary disease) Dyspnea Smoker History of abnormal cervical Pap smear Dermatitis Vitamin D deficiency Hyperlipidemia History of depression Surgical History (Updated 11/27/23 @ 07:37 by SHER Santiago) Hx of colonoscopy History of loop electrical excision procedure (LEEP) Family History Daughter Head and neck cancer Mother History of breast cancer Sister History of breast cancer Social History Household Members: Spouse Housing: House Alcohol intake: never Patient Tobacco Use Status: Current everyday Tobacco user Tobacco use type: Cigarette Cigarette Packs Per Day: 1 Cigarettes Per Day: 8 Years Smoked: 50 Current occupational status: employed 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 Sexual orientation: Straight/Heterosexual Gender identity: Female Review of Systems Const Details: All systems reviewed and are negative Physical Exam Vital Signs: Last Vital Signs Pulse 69 11/27/23 07:38 BP 114/56 L 11/27/23 07:38 BMI result Body Mass Index 22.8 Alert and oriented very pleasant woman Resp Effort & Inspection: normal respiratory effort and able to speak in complete sentences Extrem General: Yes full ROM Psych Appearance: grossly normal and well kempt Mental Status: mental status grossly normal Speech and movement: Normal speech and movement present and Clear speech present Affect: normal affect Attitude: cooperative Thought process: Normal thought process present Thought content: Normal thought content present Results Reviewed Results Reviewed: Tiffany adhikari Age/Sex: 63/F Attending: Regan Ring MD : 1960 Submitted by: Regan Ring MD Copies to: HOLLYCHARLINESunPAWAN NP MR #: [id number] Status: [facility] Collected: 11/14/23 Location: [facility] Received: 11/18/23 Diagnosis A. Cecum, polypectomy: Colonic mucosa with prominent lymphoid aggregate. B. Colon, transverse, polypectomies (2): - Tubular adenoma; negative for high-grade dysplasia or carcinoma. - Colonic mucosa with mild surface hyperplastic changes. Clinical History Pre-Op Dx: Surveillance for polyps Post-Op Dx: Colon polyps, diverticulosis, hemorrhoids Microscopic Description A, B. Microscopic sections reviewed. Material Received A. Polyp cecum B. Polyp transverse colon Gross Description Received in 2 parts. Part A: Received in formalin labeled ?polyp cecum? is a 0.3 cm torres papular tissue fragment, submitted in toto in a cassette labeled A. Part B: Received in formalin labeled ?polyps transverse colon? are 4 torres irregular and papular tissue fragments ranging from 0.1-1.0 cm in greatest dimension, submitted in toto in a cassette labeled B. CEDS Copies To PAWAN ROGERS NP [address] [place] [address] Regan Ring MD [address] [place] [address] Patient: Tiffany Nelson Age/Sex: 63/F MR#: [id number] Page 1 of 2 Assessment & Plan Assessment & Plan (1) History of adenomatous polyp of colon: Comment: polyps since age 50 AFDR- screen at 40 Reviewed recommendations 3-5 years patient prefer 3 year certainly reasonable Code(s): Z86.010 - Personal history of colonic polyps (2) Diverticulosis of colon: Code(s): K57.30 - Diverticulosis of large intestine without perforation or abscess without bleeding Plan: ER protocol HFD Plan Repeat asymptomatic colonoscopy 3 years Diverticulosis/diverticulitis ER protocol review Patient Instructions: Very pleasant 63-year-old female personal history of adenomatous colon polyps at age 50 follows up after recent polyp surveillance colonoscopy with polypectomy Reviewed procedure report, pathology recommendation Repeat asymptomatic colonoscopy 3 All first-degree relatives begin screening at age 40 Diverticulosis/diverticulitis ER protocol Maintain high-fiber Encouraged to call with any questions or concerns t Coding Level of Care Code Est Pt Level 3 (71161) Diagnoses History of adenomatous polyp of colon Z86.010 Diverticulosis of colon K57.30 Time Spent (min) 25
[2023-11-27 07:38] VITALS: BP 114/56; PULSE 69; BMI 22.8
== END 2023-11-27 08:10 | disposition home or self-care (01) ==
PROVIDERS: PCP Nurse Practitioner Family; Visit Provider Physician Assistant
DX: K57.30 Diverticulosis of large intestine without perforation or abscess without bleeding (principal); D12.3 Benign neoplasm of transverse colon
CPT/HCPCS: 99213

== ENCOUNTER → 2023-11-27 07:19 | Outpatient (BNVA) | payer BC, SELFPAY | PROVIDERS: PCP Nurse Practitioner Family; Visit Provider Physician Assistant ==

== ENCOUNTER 2024-05-20 07:52 | Outpatient (REF) | payer BC, SELFPAY ==
[2024-05-25 14:08] LABS: HPV mRNA E6/E7 Not Detected (Not Detected)
== END 2024-05-20 07:53 | disposition home or self-care (01) ==
LOC: HO.LNP 07:52
PROVIDERS: Visit Provider Advanced Practice Midwife
DX: Z01.419 Encounter for gynecological examination (general) (routine) without abnormal findings (principal); Z87.42 Personal history of other diseases of the female genital tract
CPT/HCPCS: 87624; 88175

== ENCOUNTER 2024-05-20 07:52 | Outpatient (AMB) | payer BC, SELFPAY ==
--- NOTE | 2024-05-20 07:55 | MHC.OFFVIS ---
Vital Signs 05/20/24 08:00 Height 5 ft 4 in Weight 132 lb BMI 22.7 BP 96/60 Intake Visit Reasons: [employer]ESSIONAL annual exam Intake Note: 10/05 asc-h 12/03 colpo joe 2 01/03 leep joe 3 08/06 lgsil +hpv 10/07 colpo joe 2 11/07 leep 05/07 lgsil 8 lgsil 2 hgsil 01/07 colpo joe 2 02/06 leep joe 2 05/10 lgsil 11/11 lgsil 05/11 lgsil 11/12 lgsil 05/12 lgsil 11/13 lgsil 05/13 lgsil 01/13 ascus 03/18 ascus 05/18 colpo joe 1 03/19 lgsil 10/20 neg,neg 03/20 neg, neg 09/19 neg, neg 05/21 neg, neg Transition Lead: Transition Lead Present (Yvette) Allergies codeine [From TYLENOL-CODEINE #3] Allergy (Intermediate, Verified 05/20/24 07:59) RASH HPI Comments Details: 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 She is doing well with no concerns. Attempting to eat a healthy diet with calcium and vitamin D and stays active with exercise walks. Currently not sexually active. Denies any vaginal dryness or irritation. Last pap smear; 2022 history of LEEP x3 declines colposcopy adamant on having a Pap smear yearly. Last mammogram; 2021. Colonoscopy is UTD. Denies any family history of ovarian or colon cancer. Family history of breast cancer mom and sister, she reports another sister had BRCA negative testing. She is not interested in screening or having a consult for surveillance at this time. [facility] Medical History COPD (chronic obstructive pulmonary disease) Dyspnea Smoker History of abnormal cervical Pap smear Dermatitis Vitamin D deficiency Hyperlipidemia History of depression Surgical History Hx of colonoscopy History of loop electrical excision procedure (LEEP) Family History Daughter Head and neck cancer Mother History of breast cancer Sister History of breast cancer Social History Household Members: Spouse Housing: House Alcohol intake: never Patient Tobacco Use Status: Current everyday Tobacco user Tobacco use type: Cigarette Cigarette Packs Per Day: 1 Cigarettes Per Day: 8 Years Smoked: 50 Current occupational status: employed 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 Sexual orientation: Straight/Heterosexual Gender identity: Female Female Reproductive History Menstrual Menopause type: natural Total pregnancies: 2 Full term: 2 Number of Living Children: 2 History of abnormal pap smear: Yes (see intake note) Date of Mammogram: 08/29/22 (Birad 2) Review of Systems Const All systems reviewed & are unremarkable except as noted in HPI and below Reports as per HPI Eyes Reports no additional complaints ENT Reports no additional complaints Card Reports no additional complaints Resp Reports no additional complaints GI Reports as per HPI and Reports no additional complaints Reports as per HPI Musc Reports no additional complaints Skin/Breast Reports as per HPI Neuro Reports no additional complaints Psych Reports no additional complaints Endo Reports no additional complaints Checo/Lymph Reports no additional complaints Aller/Immun Reports no additional complaints Physical Exam Vital Signs: Last Vital Signs BP 96/60 05/20/24 08:00 BMI result Body Mass Index 22.7 Const General: cooperative, healthy appearing, no acute distress, well developed and alert Orientation/consciousness: patient oriented x3 HEENT Head: Yes normal to inspection Eyes General: appearance normal, both eyes and all related structures Neck Neck: Yes normal visual inspection Thyroid: Thyroid normal Chest Chest palpation & inspection: normal inspection of the chest and other (no puckering, dimpling, peau de orange, retraction, discharge, masses) Breast/axilla inspection: normal inspection of the breasts Breast/axilla palpation: normal palpation of the breasts Resp Effort & Inspection: normal respiratory effort GI Inspection: Yes normal to inspection Palpation (GI): Soft to palpation Rectal Exam - Female: deferred General: Yes bladder normal to palpation External Female Exam: normal external appearance and normal appearance of the urethra Speculum Exam - Vagina: normal appearance of the vagina, normal palpation, normal vaginal discharge and vagina atrophic Speculum Exam - Cervix: normal appearance of the cervix (LEEP appearance) and normal palpation Bimanual exam- vagina & uterus: normal bimanual exam, normal palpation, uterine size normal, bladder normal to palpation, normal palpation and non-tender Bimanual Exam- Adnexa, other: no masses Skin General skin exam: no rashes or lesions noted Rashes: no rashes Neuro General: patient oriented x3 Cognition (Neuro): normal cognition Extrem General: Yes normal to inspection Psych Attitude: cooperative Thought process: Normal thought process present Assessment & Plan Assessment & Plan (1) Encounter for well woman exam with routine gynecological exam: Code(s): Z01.419 - Encounter for gynecological examination (general) (routine) without abnormal findings Category: Medical (2) History of abnormal cervical Pap smear: Code(s): Z87.42 - Personal history of other diseases of the female genital tract Category: Medical Plan Discussed: Current recommendations for pap smears per ASCCP guidelines. Pap smear completed, patient aware yearly screening not the standard for surveillance if abnormal Pap screening, recommended colposcopy, patient declines. Breast awareness, periodic self breast exams and yearly mammogram. Maintain a healthy lifestyle, well balanced diet including Calcium 1,200 mg and Vitamin D 600 IU daily, and routine exercise. Discuss recommendations for breast screening with MRI alternating with mammogram every 6 months, patient declined surveillance, declines referral to Dr. Jaffe for recommendations and evaluation for BRCA screening. Recommend early detection of abnormal breast changes through screening verses self-breast exam, patient prefers to do self-breast exam at this time. Contact the office with any postmenopausal bleeding. Patient verbalizes understanding and agrees to the plan of care. She was given opportunity to ask questions and all questions were answered to the best of my ability. RTO in 1 year for annual donkey ride operator exam. This note is constructed using voice recognition software. While every effort has been made to ensure accuracy, business services intern errors may have been included. Orders: Orders MM tomosynthesis screening BI Today Z12.31 - Encounter for screening mammogram for malignant neoplasm of breast PAP + HPV E6/E7 rfx 18/45 Today Z01.419 - Encounter for gynecological examination (general) (routine) without abnormal findings, Z87.42 - Personal history of other diseases of the female genital tract Coding Level of Care Code Est Pt Prev Care 40-64y(90119) Diagnoses Encounter for well woman exam with routine gynecological exam Z. History of abnormal cervical Pap smear Z87.42
[2024-05-20 08:00] VITALS: BP 96/60; BMI 22.7
== END 2024-05-20 08:31 | disposition home or self-care (01) ==
PROVIDERS: PCP Nurse Practitioner Family; Visit Provider Advanced Practice Midwife
DX: Z01.419 Encounter for gynecological examination (general) (routine) without abnormal findings (principal); Z87.42 Personal history of other diseases of the female genital tract
CPT/HCPCS: 99396

== ENCOUNTER 2024-06-16 11:30 | Outpatient (REF) | payer BC, SELFPAY ==
--- NOTE | ~2024-06-16 | MM_ITS ---
EXAMINATION: MM SCREENING DIGITAL BREAST TOMOSYNTHESIS, BILATERAL CLINICAL INFORMATION: Screening. Asymptomatic. COMPARISON: Mammography: Comparison is made with available priors TECHNIQUE: Digital breast mammography with tomosynthesis is performed in both the craniocaudal and mediolateral oblique views along with computer-aided detection (CAD). FINDINGS: There are scattered areas of fibroglandular density (ACR BI-RADS breast composition Category b). Superficial oval subdermal probable minimally complicated cyst left anterior lower inner breast stable dating back to 2021. There are no significant masses, abnormal calcifications, or other abnormalities. MM/MM tomosynthesis screening BI IMPRESSION: No mammographic evidence of malignancy. Patient has a strong family history of breast cancer including mother and sister. Yearly MRI screening surveillance could be considered for further evaluation. MRI would need to be ordered by the patient's providing clinician. ASSESSMENT: BI-RADS BI-RADS 2 - Benign Findings RECOMMENDATION: Routine annual mammography screening. 1 year F/U This examination should not preclude the clinical evaluation of a suspicious palpable abnormality. This patient's information was entered into a reminder system with a target due date for their next mammogram. Electronically signed by: Delia Mcguire DO 06/29/2024 09:25 AM EDT
== END 2024-06-16 11:31 | disposition home or self-care (01) ==
LOC: HO.MAMMO 11:30
PROVIDERS: PCP Internal Medicine; Visit Provider Advanced Practice Midwife
DX: Z12.31 Encounter for screening mammogram for malignant neoplasm of breast (principal)
CPT/HCPCS: 77063; 77067

== ENCOUNTER → 2024-06-16 11:45 | Outpatient (BNV) | payer BC, SELFPAY | PROVIDERS: PCP Internal Medicine; Visit Provider Internal Medicine | DX: Z12.31 Encounter for screening mammogram for malignant neoplasm of breast (principal) | CPT/HCPCS: 77063; 77067 ==

== ENCOUNTER 2025-06-22 11:26 | Outpatient (REF) | payer BC, SELFPAY ==
--- NOTE | ~2025-06-22 | MM_ITS ---
EXAMINATION: MM SCREENING DIGITAL BREAST TOMOSYNTHESIS, BILATERAL CLINICAL INFORMATION: Screening. Asymptomatic. COMPARISON: Comparison made to multiple prior, most recent June 16, 2024, and most remote January 02, 2016. TECHNIQUE: Digital breast tomosynthesis is performed in mediolateral oblique and craniocaudal views along with computer-aided detection (CAD). Synthesized 2D images are generated from the tomosynthesis. FINDINGS: BREAST COMPOSITION: There are scattered areas of fibroglandular density. RIGHT BREAST: No significant masses, suspicious calcifications or other abnormalities are seen. LEFT BREAST: Approximately 0.5 cm focal asymmetry in the upper breast at about 12 o'clock position at 2.0-3.8 cm from the nipple (MLO 50/74, CC 41/64). No suspicious calcifications or other abnormalities are seen. MM/MM tomosynthesis screening BI IMPRESSION: RIGHT BREAST: Negative, no mammographic evidence of malignancy. Normal interval follow-up is recommended in 12 months. LEFT BREAST: 0.5 cm focal asymmetry in the upper breast at approximately 12 o'clock position anterior depth. ASSESSMENT: BI-RADS: Category 0: Incomplete - Need additional Imaging Evaluation RECOMMENDATION: 1. Additional views of the left breast. 2. Targeted ultrasound if warranted after review of the additional views. 3. Radiology department staff will contact the patient for additional imaging. FOLLOW-UP: Additional Imaging required This examination should not preclude the clinical evaluation of a suspicious palpable abnormality. This patient's information was entered into a reminder system with a target due date for their next mammogram. Electronically signed by: Leda Moreira MD 06/24/2025 05:54 PM EDT
--- OUTSIDE RECORDS SUMMARY | 2025-06-22 14:35 | XMS_ITS | Clinical Summary ---
Author Organization [facility] Address [address] [address] Phone Care Team Providers Care Lockstitch Sleeve Setter Name Role Phone Hanna Rodrigues I CNM Unavailable [phone] Unknown, Unknown Primary Care Provider Charisse ramirez Allergies Active Allergy Reactions Criticality Noted Date Comments Codeine Rash Low 08/15/2017 Medications ibuprofen (ADVIL,MOTRIN) 200 MG tablet 1 tablet as needed Active melatonin 10 mg CapIndications:two tabs Take 10 mg by mouth nightly as needed. Indications: two tabs Active calcium carbonate (CALCIUM 500 ORAL) Take by mouth. Active fluocinonide 0.05 % ointment Apply 1 application. topically daily as needed. 30 g 3 3 Active betamethasone dipropionate 0.05 % lotion Apply topically daily as needed. 60 mL 2 3 Active albuterol 90 mcg/actuation inhaler Inhale 2 puffs into the lungs every 6 (six) hours as needed for wheezing. Active atorvastatin (LIPITOR) 40 MG tabletIndications: Mixed hyperlipidemia Take 1 tablet (40 mg total) by mouth daily. 90 tablet 3 3 Active sertraline (ZOLOFT) 50 MG tabletIndications: Depression Take 1.5 tablets (75 mg total) by mouth daily. 135 tablet 3 3 Active buPROPion (WELLBUTRIN XL) 150 MG ER 24 hr tabletIndications: Depression Take 1 tablet (150 mg total) by mouth daily. 90 tablet 3 3 Active Active Problems Problem Noted Date Diagnosed Date Trochanteric bursitis of left hip 08/19/2023 RBBB 07/05/2022 Hidradenitis 08/18/2018 Mixed hyperlipidemia 08/15/2017 Nicotine dependence, cigarettes, uncomplicated 1 10/15/2016 Depression 08/15/2017 Generalized anxiety disorder 08/15/2017 Immunizations Immunization Administration Dates Next Due COVID-19 (Pre-07/21) Moderna Vaccine, mRNA, PF 0 10/27/2020,09/28/2020 INFLUENZA, SPLIT VIRUS, TRIVALENT W/ PRESERVATIV E IM 07/27/2015,08/01/2014 Influenza Quadrivalent MDCK Preservative Free IM 06/28/2019,06/13/2017 Influenza Quadrivalent w/ Preservative IM 2017 Influenza, Unspecified Formulation 06/29/2020 Pneumococcal conjugate PCV13 10/15/2019 Pneumococcal polysaccharide PPSV23 10/20/2020 Tdap 10/15/2019 Family History Medical History Relation Comments Drug abuse Daughter 1 Head and neck cancer Daughter 2 Breast cancer Mother COPD Mother cause of CV disease Mother Cancer Mother Diabetes mellitus Mother Cancer Sibling Neurological disorder Sister 1 myotonic d ystrophy Neurological disorder Sister 2 Neurological disorder Sister 3 Breast cancer Sister 5 Relation Status Comments Daughter 1 Alive Daughter 2 Alive Father (Age 92) old age Mother Sibling Sister 1 Sister 2 Sister 3 Alive Sister 4 Alive Sister 5 Alive Social History Tobacco Use Types Packs/Day Years Used Date Smoking Tobacco: Every Day Cigarettes 1 30 Smokeless Tobacco: Never Tobacco Cessation:Ready to Q uit: No; Counseling Given: Yes Alcohol Use Standard Drinks/Week Comments No 0 (1 standard drink = 0.6 oz pur e alcohol) No ETOH since May 2018 Child or Family Care Answer Date Record ed Do you have problems with on e of the following making it difficult for you to work, study, or receive health care? No 08/12/2023 Education Answer Date Recorded Are you interested in help w ith more adult education (for example, completing high school, GED, job training, learning the [place] language, technical skills, or developing parenting skills)? No 08/12/2023 Are you concerned about learning? Not on file 08/12/2023 No 08/12/2023 Yes 08/12/2023 Food Answer Date Recorded Within the past 6 months we worried whether our food would run out before we got money to buy more. Never True 08/12/2023 Within the past 6 months the food we bought just didn't last and we didn't have enough money to get more. Never True Residential Stability Answer Date Recor ded What is your housing situation today? I have dalton milligan 08/12/2023 How many times have you move d in the past 12 months? Zero (I did not move) 08/12/2023 Paying for Meds Answer Date Recorded Do you have trouble paying for medicines? Yes 08/12/2023 Paying Utility Bills Answer Date Record ed Do you have trouble paying your heating or elect ricity bill? No 08/12/2023 Transportation Answer Date Recorded Has the lack of transportati on kept you from medical appointments or from getting medications? No 08/12/2023 Unemployment Answer Date Recorded Are you currently unemployed or working on a part-time or temporary basis, and looking for work? No 07/05/2022 Digital Access Answer Date Recorded No 08/12/2023 Yes 08/12/2023 Do you have reliable internet access at home? Ye s 08/12/2023 Do you have a device (e.g., phone, tablet, computer) with a working camera? Yes 08/12/2023 Intimate Partner Violence Answer Date R ecorded Denied Basic Needs Not on file 08/12/2023 In the past 12 months have y ou been in a relationship with a person who hurts, threatens, or tries to control you? No 08/12/2023 Worried food would run out Not on file 08/12 In the past 12 months have y ou been in a relationship with a person who hurts, threatens, or tries to control you? No 08/12/2023 Comments Unknown Sex and Gender Information Value Date Recorded Sex Assigned at Not on file Legal Sex Female 10:34 PM EDT Gender Identity Not on file Sexual Orientation Not on file Last Filed Vital Signs Vital Sign Reading Time Taken Comments Blood Pressure 120/72 08/19/2023 12:50 PM EST Pulse 91 08/19/2023 12:50 PM EST Temperature 36.5 C (97.7 F) 08/19/2023 12:50 PM EST Respiratory Rate 16 10/15/2019 10:27 AM EST Oxygen Saturation 97% 08/19/2023 12:50 PM EST Inhaled Oxygen Concentration - - Weight 64 kg (141 lb) 08/19/2023 12:50 PM EST Height 160.7 cm (5' 3.25 ) 08/19/2023 12:[address] Body Mass Index 24.78 08/19/2023 12:50 PM EST Plan of Treatment Health Maintenance Due Date Last Done Comments SMOKING Hx and SMOKELESS TOBACCO SCREENING 1973 COLOGUARD 2005 FIT TEST 2005 FOBT 2005 SIGMOIDOSCOPY 2005 VIRTUAL COLONOSCOPY 2005 ZOSTER VACCINES (1 of 2) 2010 DEPRESSION SCREENING 08/12/2024 08/12/2023, 08/18/20 18 MAMMOGRAM 08/29/2024 08/29/2022, 02/28, 11/14/2018 INFLUENZA VACCINE (#1) 2025 , 06/28/2019, 06/29/2018, Additional history exists COVID-19 VACCINE (3 - 2024- season) 2025 10/27/2020, 09/28/2020 PNEUMOCOCCAL VACCINES (50+ years) (3 of 3 - PCV20 or PCV21) 10/20/2025 10/20/2020, 10/15/2019 PAP SMEAR 05/09/2026 05/09/2023, 06/30, 07/27/2018 COLONOSCOPY 07/02/2026 07/02/2016 COLORECTAL CANCER SCREENING 07/02/2026 LIPID PANEL 08/19/2028 08/19/2023, 07/30, 08/09/2022, Additional history exists Adult Td,Tdap Booster 10/15/2029 10/15/2019 RSV VACCINE (1 - 1-dose 75+ series) 2035 HEPATITIS C SCREENING Completed 11/26/2019, 020 HIV ONE-TIME SCREENING (18-65 YEARS) Completed 11/26/2019 HEPATITIS A VACCINES Aged Out No long er eligible based on patient's age to complete this topic HIB VACCINES Aged Out No longer eligi ble based on patient's age to complete this topic MENINGOCOCCAL VACCINES (ACWY) Aged Out No longer eligible based on patient's age to complete this topic MENINGOCOCCAL VACCINES (B) Aged Out N o longer eligible based on patient's age to complete this topic Medical Devices Not on file Procedures Procedure Name Priority Date/Time Associated Diagnosis Comments LIPID PANEL Routine 08/19/2023 3:48 PM EST Mixed hyperlipidemia PAP TEST Routine 05/09/2023 MAMMOGRAPHY Routine 08/29/2022 OUTSIDE HIV Routine 11/26/2019 HEPATITIS C ANTIBODY, QUALITATIVE Routine 11/26/2019 COLONOSCOPY FOR RESULT ENTRY ONLY Routine 07/02/2016 from Last 3 Months or Most Recently Relevant to Health Maintenance Results * (ABNORMAL) Lipid panel (08/19/2023 3:48 PM EST) HDL 59 mg/dL [facility] Comment: Interpretation <40 mg/dL: Low HDL cholesterol (major risk factor for CHD) Greater than or equal to 60 mg/dL: High HDL cholesterol ( negative risk factor for CHD) HDL - cholesterol is affected by a number of factors, e.g. smoking, excerise, hormones, sex and age. CHOLESTEROL 150 0 - 240 mg/dL [facility] TRIGLYCERIDES 81 30 - 160 mg/dL [facility] LDL 75 50 - 129 mg/dL [facility] Comment: LDL levels in terms of risk for coronary heart disease: <100 mg/dL: Optimal 100-129 mg/dL: Near or above optimal 130-159 mg/dL: Borderline high 160-189 mg/dL: High >190 mg/dL: Very High CARDIAC RISK RATIO 2.5(L) 3.3 - 4.4 [facility] Blood 08/19/2023 3:48 PM EST 08/19/2023 3:50 PM EST us Renetta Olsen NP LAB BLOOD ORDERABLES Final Resu lt [facility] [address] [place] [address] * Pap Test (05/09/2023) Renetta Olsen NP CYTOLOGY ORDERABLES Edited Resu lt - Final * HM MAMMOGRAPHY FOR RESULT ENTRY ONLY (08/29/2022) Result [facility] Historical Provider HEALTH MAINTENANCE Edited Result - Final * OUTSIDE HIV TEST (11/26/2019) HIV - External Neg Result [facility] Historical Provider LAB BLOOD ORDERABLES Carol l Result * Hepatitis C antibody, qualitative (11/26/2019) Renetta Olsen NP LAB BLOOD ORDERABLES Final Resu lt * HM COLONOSCOPY FOR RESULT ENTRY ONLY (07/02/2016) Colonoscopy repeat 5 yrs Result [facility] Lilly GLEASON HEALTH MAINTENANCE Final Result from Last 3 Months or Most Recently Relevant to Health Maintenance [place] [address] [address] [facility] PPO [facility] OUT [facility] PPO [employer] [place] OUT OF STATE PPO [employer] [place] OUT OF STATE PPO BL[employer] [place] OUT OF STATE PPO [place] [place] OUT OF STATE PPO [place] [place] OUT OF STATE PPO [place] [place] OUT OF STATE PPO [facility] OUT STATE PPO Care Teams Lockstitch Sleeve Setter Relationship Specialty Start Date End Date Unknown, Unknown, PCP - General 12/26/23 Hanna Rodrigues CNM [address] [place] [address] [address] [place] [id number] Obstetrics 08/04/23 Additional Source Comments The information contained in this document represents components of the legal health record. It is not the complete legal health record.[facility]
--- OUTSIDE RECORDS SUMMARY | 2025-06-22 14:35 | XMS_ITS | Clinical Summary ---
Author Organization [address] [facility] Address [address] [place] [phone] Phone Care Team Providers Care Bulk Gas Specialist Name Role Phone Ron Pastor DO Primary Care Provider [phone] Encounters Date Type Department Care Team Description 04/13/2025 1:02 PM EDT - 04/13/2025 11:59 PM EDT Hospital Encounter Xray [address] [place] [address] Pain in left hip; Pain in left knee Discharge Disposition: Home or Self Care from Last 3 Months Social History Tobacco Use Types Packs/Day Years Used Date Smoking Tobacco: Every Day Smokeless Tobacco: Never Alcohol Use Standard Drinks/Week Comments Not Currently 0 (1 standard drink = 0.6 oz pur e alcohol) Comments Unknown Sex and Gender Information Value Date Recorded Sex Assigned at Not on file Legal Sex Female 11:03 AM EDT Gender Identity Not on file Sexual Orientation Not on file Obstetrics History Last Filed Vital Signs Vital Sign Reading Time Taken Comments Blood Pressure 105/60 04/08/2024 3:09 PM EDT Sit ting L Arm Pulse 165 02/02/2024 8:04 AM EDT Temperature - - Respiratory Rate - - Oxygen Saturation - - Inhaled Oxygen Concentration - - Weight 59.9 kg (132 lb) 04/08/2024 3:09 PM EDT Height 160 cm (5' 3 ) 04/08/2024 3:09 PM EDT Body Mass Index 23.38 04/08/2024 3:09 PM EDT Plan of Treatment Health Maintenance Due Date Last Done Comments Breast Cancer Screening 1960 Cervical Cancer Screening: Pap Smear 1981 Zoster Vaccines (1 of 2) 2010 Colorectal Cancer Screening: Colonoscopy 04/23/2024 HIV Screening 04/23/2024 Hepatitis C Screening 04/23/2024 Medicare Annual Wellness Visit 04/23/2024 Social Influencers of Health Screening 04/23/2024 Depression Screening 09/29/2024 COVID-19 Vaccine (3 - season) 2025 10/27/2020, 09/28/2020 Influenza Vaccine (#1) 2025 , 06/28/2019, 06/29/2018, Additional history exists Pneumococcal Vaccine: 50+ Years (3 of 3 - PCV20 or PCV21) 10/20/2025 10/20/2020, 10/15/2019 Cholesterol Screening (Lipid Panel) 10/13/2029 10/13/2024, 08/19/2023 DTaP,Tdap,and Td Vaccines (2 - Td or Tdap) 10/15/2029 10/15/2019 RSV Immunization Adult Patients (1 - 1-dose 75+ series) 2035 HIB Vaccines Aged Out No longer eligi ble based on patient's age to complete this topic HPV Vaccines Aged Out No longer eligi ble based on patient's age to complete this topic Hepatitis A Vaccines Aged Out No long er eligible based on patient's age to complete this topic Hepatitis B Vaccines Aged Out No long er eligible based on patient's age to complete this topic IPV Vaccines Aged Out No longer eligi ble based on patient's age to complete this topic MMR Vaccines Aged Out No longer eligi ble based on patient's age to complete this topic Meningococcal ACWY Vaccine Aged Out N o longer eligible based on patient's age to complete this topic Meningococcal B Vaccine Aged Out No l onger eligible based on patient's age to complete this topic RSV Immunization Patients Under 20 months Aged Out No longer eligible based on patient's age to complete this topic Varicella Vaccines Aged Out No longer eligible based on patient's age to complete this topic Procedures Procedure Name Priority Date/Time Associated Diagnosis Comments XR KNEE 4+ VIEWS LEFT Routine 04/13/2025 1:27 PM EDT Pain in left hip Pain in left knee XR HIP 2-3 VIEWS LEFT Routine 04/13/2025 1:27 PM EDT Pain in left hip Pain in left knee LIPID PANEL WITH REFLEX TO DIRECT LDL Routine 10/13/2024 1:40 PM EST Routine general medical examination at a [facility] facility Screening for ischemic heart disease Screening for thyroid disorder from Last 3 Months or Most Recently Relevant to Health Maintenance Results * XR Knee 4+ Views Left (04/13/2025 1:27 PM EDT) Anatomical Region Laterality Modality Lower Extremities, Knee Left [facility] 04/13/2025 1:54 PM EDT Impressions 04/13/2025 1:55 PM EDT Impression: No significant abnormality identified in the left knee. Telerad QIAN ([id number]) -------- FINAL REPORT -------- Dictated By: Neema Heredia Dictated Date: 04/13/2025 13:54 ET Assigned Physician: Neema Heredia Reviewed and Electronically Signed By: Neema Heredia Signed Date: 04/13/2025 13:55 ET Workstation ID: [id number] Transcribed By: Self Edit Transcribed Date: 04/13/2025 13:54 ET Narrative 04/13/2025 1:55 PM EDT History: Chronic left knee pain. Comparison: No comparison imaging at this institution. Findings: AP, oblique and lateral views of the left knee. The osseous structures are intact and the articular spaces are well-maintained. No osseous destructive lesions are identified. There are tiny osteophytes along the posterior aspect of the patella. No joint effusion is seen. The overlying soft tissues are unremarkable. Procedure Note Neema Heredia MD - 04/13/2025 History: Chronic left knee pain. Comparison: No comparison imaging at this institution. Findings: AP, oblique and lateral views of the left knee. The osseous structures areintact and the articular spaces are well-maintained. No osseousdestructive lesions are identified. There are tiny osteophytes along theposterior aspect of the patella. No joint effusion is seen. The overlying soft tissues are unremarkable. IMPRESSION: Impression: No significant abnormality identified in the left knee. Telerad PA ([id number]) -------- FINAL REPORT -------- Dictated By: Neema Heredia Dictated Date: 04/13/2025 13:54 ET Assigned Physician: Neema Heredia Reviewed and Electronically Signed By: Neema Heredia Signed Date: 04/13/2025 13:55 ET Workstation ID: [id number] Transcribed By: Self Edit Transcribed Date: 04/13/2025 13:54 ET Ron Pastor DO IMG XR PROCEDURES Final Resul t * XR Hip 2-3 Views Left (04/13/2025 1:27 PM EDT) Anatomical Region Laterality Modality Lower Extremities, Hip Left Radiograp hic Imaging 04/13/2025 1:55 PM EDT Impressions 04/13/2025 1:56 PM EDT Impression: Severe arthritic change of the left hip, with flattening and deformity of the weightbearing portion of the femoral head. Telerad PA ([id number]) -------- FINAL REPORT -------- Dictated By: Neema Heredia Dictated Date: 04/13/2025 13:55 ET Assigned Physician: Neema Heredia Reviewed and Electronically Signed By: Neema Heredia Signed Date: 04/13/2025 13:56 ET Workstation ID: [id number] Transcribed By: Self Edit Transcribed Date: 04/13/2025 13:55 ET Narrative 04/13/2025 1:56 PM EDT History: Left hip pain for 2 years. Comparison: No comparison imaging at this institution. Findings: An AP view of the pelvis to include both hips and AP and frog-leg lateral views of the left hip are submitted. There is severe loss of cartilage space along the weightbearing portion of the left hip, accompanied by extensive subchondral sclerosis and cyst formation. There is flattening and deformity of the weightbearing surface of the femoral head, with buttressing along the femoral neck. No acute fracture is seen. The right hip is unremarkable in this single projection. The pelvic bones are intact. The sacroiliac joints are well-maintained. Extensive atherosclerotic vascular calcification is present. Procedure Note Neema Heredia MD - 04/13/2025 History: Left hip pain for 2 years. Comparison: No comparison imaging at this institution. Findings: An AP view of the pelvis to include both hips and AP and frog-leg lateralviews of the left hip are submitted. There is severe loss of cartilage space along the weightbearing portion ofthe left hip, accompanied by extensive subchondral sclerosis and cystformation. There is flattening and deformity of the weightbearing surfaceof the femoral head, with buttressing along the femoral neck. No acutefracture is seen. The right hip is unremarkable in this single projection. The pelvic bonesare intact. The sacroiliac joints are well-maintained. Extensive atherosclerotic vascular calcification is present. IMPRESSION: Impression: Severe arthritic change of the left hip, with flattening and deformity ofthe weightbearing portion of the femoral head. Teleshilo LAUGHLIN ([id number]) -------- FINAL REPORT -------- Dictated By: Neema Heredia Dictated Date: 04/13/2025 13:55 ET Assigned Physician: Neema Heredia Reviewed and Electronically Signed By: Neema Heredia Signed Date: 04/13/2025 13:56 ET Workstation ID: [id number] Transcribed By: Self Edit Transcribed Date: 04/13/2025 13:55 ET us Ron Pastor DO IMG XR PROCEDURES Final Resul t * (ABNORMAL) Lipid panel with reflex to direct LDL (10/13/2024 1:40 PM EST) Cholesterol 145 0 - 200 mg/dL LAB CHEMISTRY METHOD 10/13/2024 7:28 PM EST [facility] Triglycerides 199(H) 0 - 150 mg/dL LAB CHEMISTRY METHOD 10/13/2024 7:28 PM EST [facility] HDL 56 >=40 mg/dL LAB CHEMISTRY METHOD 10/13/2024 7:28 PM EST [facility] LDL Calculated 49 0 - 100 mg/dL LAB CHEMISTRY METHOD 10/13/2024 7:28 PM EST [facility] VLDL Cholesterol Nelson 39.8 mg/dL LAB CHEMISTRY METHOD 10/13/2024 7:28 PM EST [facility] Non HDL Chol. (LDL+VLDL) 89 <145 mg/dL LAB CHEMISTRY METHOD 10/13/2024 7:28 PM EST [facility] Chol/HDL Ratio 2.6 0.0 - 4.4 LAB CHEMISTRY METHOD 10/13/2024 7:28 PM EST [facility] Blood Venous blood specimen / Unknown Venipuncture / Unknown 10/13/2024 1:40 PM EST 10/13/2024 1:40 PM EST us Escobedo Morrell LIBRARY SERIALS ASSISTANT LAB BLOOD ORDERABLES Final Resul t [facility] [address] [place] [address], from Last 3 Months or Most Recently Relevant to Health Maintenance Insurance [facility] ([facility]) MEDICARE ADVANTAGE Care Teams Bulk Gas Specialist Relationship Specialty Start Date End Date Ron Pastor DO [address] [place] [phone] PCP - General 01/23/24
== END 2025-06-22 11:27 | disposition home or self-care (01) ==
LOC: HO.MAMMO 11:26
PROVIDERS: PCP Internal Medicine; Visit Provider Internal Medicine
DX: Z12.31 Encounter for screening mammogram for malignant neoplasm of breast (principal)
CPT/HCPCS: 77063; 77067

== ENCOUNTER → 2025-06-22 11:30 | Outpatient (BNV) | payer BC, SELFPAY | PROVIDERS: PCP Internal Medicine; Visit Provider Radiology Body Imaging | DX: Z12.31 Encounter for screening mammogram for malignant neoplasm of breast (principal) | CPT/HCPCS: 77063; 77067 ==

== ENCOUNTER 2025-09-23 09:43 | Outpatient (REF) | payer BC, SELFPAY ==
--- NOTE | ~2025-09-23 | MM_ITS ---
EXAMINATION(S): 1. MM DIAGNOSTIC DIGITAL BREAST TOMOSYNTHESIS, LEFT 2. TARGETED ULTRASOUND OF THE LEFT BREAST CLINICAL INFORMATION: Callback from screening for left breast focal asymmetry in the upper breast COMPARISON: Screening mammogram on August 17, 2025 TECHNIQUE: Digital breast tomosynthesis is performed in full field ML 90 degrees along with computer-aided detection (CAD). Synthesized 2D images are generated from the tomosynthesis. Spot compression tomosynthesis were obtained. FINDINGS: BREAST COMPOSITION: There are scattered areas of fibroglandular density. LEFT BREAST: Previously suggested asymmetry in the upper breast at approximately 5.5 cm from the nipple persists on the ML90 degrees and spot MLO (spot MLO 26/46), but appears to press out on today's spot CC views. Targeted ultrasound of the left breast was performed at the location of the mammographic finding. The survey shows a 0.5 x 0.4 x 0.3 cm cyst at 12 o'clock position 5 cm from the nipple. This correlates with the mammographic finding. In addition, two known calcifications were seen at 12 o'clock position 4 cm from the nipple. MM/MM tomosynthesis added views L IMPRESSION: LEFT BREAST: 0.5 cm cyst at 12 o'clock position at 5 cm from the nipple. Benign, no mammographic evidence of malignancy. Normal interval follow-up is recommended in 12 months. ASSESSMENT: BI-RADS: Category 2: Benign RECOMMENDATION: 1 year F/U Results were provided to the patient at time of visit by the technologist. This patient's information was entered into a reminder system with a target due date for their next mammogram. Electronically signed by: Leda Moreira MD 09/23/2025 11:24 AM [facility] [place], [place]
--- OUTSIDE RECORDS SUMMARY | 2025-09-23 09:46 | XMS_ITS | Clinical Summary ---
Author Organization [address] [facility] Address [address] [place] [address] Phone Care Team Providers Care Meter Tester Name Role Phone Ron Pastor DO Primary Care Provider [phone] Social History Tobacco Use Types Packs/Day Years [...] Last Done Comments Breast Cancer Screening 1960 Colorectal Cancer Screening: Colonoscopy 1960 Cervical Cancer Screening: Pap Smear 1981 Zoster Vaccines (1 of 2) 2010 Hepatitis C Screening 04/23/2024 Medicare Annual Wellness Visit 04/23/2024 Osteoporosis Screening (Bone Density Screening) 04/23/2024 Social Influencers of Health Screening 04/23/2024 Depression Screening 09/29/2024 COVID-19 Vaccine (3 - 2024- season) 2025 10/27/2020, 09/28/2020 Influenza Vaccine (#1) 2025 0, 06/28/2019, 06/29/2018, Additional history exists Falls Risk Assessment 2025 Pneumococcal Vaccine: 50+ Years (3 of 3 [...] Priority Date/Time Associated Diagnosis Comments LIPID PANEL WITH REFLEX TO DIRECT LDL Routine 10/13/2024 1:40 PM EST Routine general medical examination at a health care facility Screening for ischemic heart disease Screening for thyroid disorder from Last 3 Months or Most Recently Relevant to Health Maintenance Results * (ABNORMAL) Lipid panel with reflex to direct LDL (10/13/2024 1:40 PM EST) [facility] Cholesterol 145 0 - 200 mg/dL LAB CHEMISTRY METHOD 10/13/2024 7:28 PM EST [facility] Triglycerides 199(H) 0 - 150 mg/dL LAB CHEMISTRY METHOD 10/13/2024 7:28 PM EST [facility] HDL 56 >=40 mg/dL LAB CHEMISTRY METHOD 10/13/2024 7:28 PM [facility] LDL Calculated 49 0 - 100 mg/dL LAB CHEMISTRY METHOD 10/13/2024 7:28 PM [facility] VLDL Cholesterol Nelson 39.8 mg/dL LAB CHEMISTRY METHOD 10/13/2024 7:28 PM [facility] Non HDL Chol. (LDL+VLDL) 89 <145 mg/dL LAB CHEMISTRY METHOD 10/13/2024 7:28 PM [facility] Chol/HDL Ratio 2.6 0.0 - 4.4 LAB CHEMISTRY METHOD 10/13/2024 7:28 PM [facility] Blood Venous blood specimen / Unknown Venipuncture / Unknown 10/13/2024 1:40 PM EST 10/13/2024 1:40 PM EST us Escobedo Morrell ELECTRIC TRIPPER MACHINE OPERATOR LAB BLOOD ORDERABLES Final Resul t [facility] [address] [place] [address], from Last 3 Months or Most Recently Relevant to Health Maintenance Insurance [facility] ([facility]) MEDICARE ADVANTAGE Care Teams Meter Tester Relationship Specialty Start Date End Date Ron Pastor DO [address] [place] [phone] PCP - General 01/23/24
--- OUTSIDE RECORDS SUMMARY | 2025-09-23 09:46 | XMS_ITS | Clinical Summary ---
Author Organization [facility] Address [address] [address] Phone Care Team Providers Care Health Records Technology Teacher Name Role Phone Hanna Rodrigues I CNM Unavailable Unknown, Unknown Primary Care Provider Charisse ramirez [...] Answer Date Recorded Are you interested in more education? Not on crys e 08/17/2025 Are you concerned about learning? Not on file 08/17/2025 No 08/17/2025 No 08/17/2025 Food Answer Date Recorded Within the past [...] 07/05/2022 Digital Access Answer Date Recorded No 08/17/2025 No 08/17/2025 Reliable internet access at home? Not on file 08/17/2025 Device with a working camera? Not on file Intimate Partner Violence Answer Date R ecorded [...] - PCV20 or PCV21) 10/20/2025 10/20/2020, 10/15/2019 COLONOSCOPY 07/02/2026 07/02/2016 COLORECTAL CANCER SCREENING 07/02/2026 LIPID PANEL 08/19/2028 08/19/2023, 07/30, 08/09/2022, Additional history exists Adult Td,Tdap Booster 10/15/2029 10/15/2019 RSV VACCINE (1 - 1-dose 75+ series) 2035 HEPATITIS C SCREENING Completed 11/26/2019, 020 HIV ONE-TIME SCREENING (18-65 YEARS) Completed 11/26/2019 OSTEOPOROSIS SCREENING INITIAL (ONE-TIME) Completed 07/05/2022, 03/23/2020 HEPATITIS A VACCINES Aged Out No long [...] Routine 08/19/2023 3:48 PM EST Mixed hyperlipidemia HM MAMMOGRAPHY Routine 08/29/2022 BD DXA SCREENING Routine 07/05/2022 2:03 PM EDT Osteopenia, unspecified location OUTSIDE HIV Routine 11/26/2019 HEPATITIS C ANTIBODY, QUALITATIVE Routine 11/26/2019 HM COLONOSCOPY FOR RESULT ENTRY ONLY Routine 07/02/2016 from Last 3 Months or Most Recently Relevant to Health Maintenance Results * (ABNORMAL) Lipid panel (08/19/2023 3:48 PM EST) HDL 59 mg/dL [facility] Comment: Interpretation <40 mg/dL: Low HDL cholesterol (major risk factor for CHD) Greater than or equal to 60 mg/dL: High HDL cholesterol ( negative risk factor for CHD) HDL - cholesterol is affected by a number of factors, e.g. smoking, excerise, hormones, sex and age. CHOLESTEROL 150 0 - 240 mg/dL [facility] TRIGLYCERIDES 81 30 - 160 mg/dL [facility] LDL 75 50 - 129 mg/dL [facility] Comment: LDL levels in terms of risk for coronary heart disease: <100 mg/dL: Optimal 100-129 mg/dL: Near or above optimal 130-159 mg/dL: Borderline high 160-189 mg/dL: High >190 mg/dL: Very High CARDIAC RISK RATIO 2.5(L) 3.3 - 4.4 C [facility] Blood 08/19/2023 3:48 PM EST 08/19/2023 3:50 PM EST us Renetta Olsen NP LAB BLOOD BKR ORDERABLES Final Result [address] [id number] * MAMMOGRAPHY FOR RESULT ENTRY ONLY (08/29/2022) Historical Provider HEALTH MAINTENANCE Edited Result - Final * DXA Screening (03/23/2020 2:43 PM EDT) Anatomical Region Laterality Modality Bone Density Bone Density Renetta Olsen NP IMG BD BONE DENSITY DEXA Final Result * OUTSIDE HIV TEST (11/26/2019) HIV - External Neg Historical Provider LAB BLOOD ORDERABLES Carol l Result * Hepatitis C antibody, qualitative (11/26/2019) Renetta Olsen NP LAB BLOOD BKR ORDERABLES Final Result * COLONOSCOPY FOR RESULT ENTRY ONLY (07/02/2016) Colonoscopy repeat 5 yrs Historical Provider HEALTH MAINTENANCE Final Result from Last 3 Months or Most Recently Relevant to Health Maintenance [place] [address] [address] OUT [facility] PPO BLUE [employer]OSS OUT OF STATE PPO BLUE [employer]OSS OUT OF STATE PPO [employer]UE [employer] OUT OF STATE PPO [employer] OUT OF STATE PPO [employer] OUT OF STATE PPO [employer]UE [employer] OUT OF STATE PPO [facility] OUT OF STATE PPO Care Teams Health Records Technology Teacher Relationship Specialty Start Date End Date Unknown, Unknown, PCP - General 12/26/23 Hanna Rodrigues CNM [address] [place] [address] [place] [id number] Obstetrics 08/04/23 Additional Source Comments The information contained in this document represents components of the legal health record. It is not the complete legal health record.[facility]
== END 2025-09-23 09:44 | disposition home or self-care (01) ==
LOC: HO.MAMMO 09:43
PROVIDERS: PCP Internal Medicine; Visit Provider Internal Medicine
DX: N64.89 Other specified disorders of breast (principal)
CPT/HCPCS: 76642; 77061; 77065

== ENCOUNTER → 2025-09-23 10:00 | Outpatient (BNV) | payer BC, SELFPAY | PROVIDERS: PCP Internal Medicine; Visit Provider Radiology Body Imaging | DX: N60.02 Solitary cyst of left breast (principal) | CPT/HCPCS: 76642; 77061; 77065 ==